=== PATIENT | female | born 1955 | race Caucasian/White ===

== ENCOUNTER 2017-01-18 11:21 | Emergency (ER) | payer MEDICARE, MEDICAID ==
[~2017-01-18] VITALS: Ht 167.6 cm; Wt 90.9 kg
[~2017-01-18 11:21] MED LIST: ATEN100T PO; FURO40TA4 PO; HYDR-4003 PO; INSLIS SUBQ; INSU100V7 SUBQ; METF1000 PO; PARO10OR3 PO; POTA10TA PO
[2017-01-18 11:25] VITALS: BP 182/99; PULSE 92; RESP 15; O2SAT 97
--- NOTE | 2017-01-18 11:31 | ED.REPORT ---
HPI-General Illness Date of Service Jan 18, 2017 ED Provider: Gordon Mcnulty MD Patient is a 61 year old female with a hx of HTN, hyperlipidemia, DM, COPD, hypothyroid, and valvular heart disease who presents to the ED stating that her blood sugar has been high since this morning when she woke up. Associated symptoms include confusion, blurred vision, bilateral hand numbness, SOB, and sweats. She denies fever, headache, chest pain, abdominal pain, or any other symptoms. She denies excessive sugar intake. She ate cereal this morning. Upon waking her blood sugar was 329. She took 10 units of Humalog at 1000 which brought it down to 296. She normally takes 50 of Lantus at night. Nursing Notes Stated Complaint: HIGH BLOOD SUGAR Chief Complaint: General Complaint Nursing Notes Reviewed: Yes Allergies: Coded Allergies: lisinopril (Verified Allergy, Severe, ANAPHYLAXIS, 01/18/17) vancomycin (Verified Allergy, Severe, ITCHING, 12/28/15) simvastatin (Verified Allergy, Unknown, 12/28/15) metformin (Verified Adverse Reaction, Intermediate, DIARRHEA AT TIMES, ) Scheduled Atenolol (Atenolol) 100 Mg Tablet 100 MG PO DAILY Azithromycin (Zithromax (Z-Emmanuel)) 250 Mg Tablet 250 MG PO DIRECTED Take two tablets by mouth on day 1, then take one tablet daily on days 2 through 5. Furosemide (Furosemide) 40 Mg Tablet 40 MG PO DAILY Insulin Glargine (Lantus U100 Insulin Vial) 100 Unit/Ml Vial 50 UNIT SUBQ QPM Insulin Human Lispro (HumaLOG U100 Insulin Vial) 100 Unit/Ml Unit 1 UNIT SUBQ per sliding scale Check blood sugars before meals and at bedtime. Use correction factor only before meals. Blood Sugar Lispro Correction: <151, 0 units; 151-175, 1 unit; 176-200, 2 units; 201-225, 3 units; 226-250, 4 units; 251-275, 5 units; 276-300 , 6 units; 301-325, 7 units; 326-350, 8 units; 351-375, 9 units; 376-400, 10 units; >400, 12 units. Metformin (Glucophage) 1,000 Mg Tablet 1,000 MG PO BID Paroxetine (Paxil) 10 Mg/5 Ml Oral.susp 20 MG PO HS Potassium Chloride ER (K-Tab) 10 Meq Tablet.er 10 MEQ PO DAILY Scheduled PRN Hydrocodone-Acetaminophen 5-325 mg (Hydrocodone-Acetaminophen 5-325 mg) 1 Each Tablet 1 EACH PO Q4 PRN PRN For Pain General Time Seen by MD: 11:30 Chief Complaint Other (High blood pressure ) Hx Obtained From: Patient Arrived By: Walk-in Sudden in Onset?: Yes Onset Occurred: 1 - 4 hours ago Symptom Duration: Since onset Similar Sx Previous: Yes Past Medical History Past Medical History 1. Diabetes mellitus type 2 diagnosed August 2011. Poorly controlled with hemoglobin A1c of 11.4 in April. Recently discharged on regular insulin, but tells me she has only needed to use this three times for sugars greater than 200. 2. Recurrent left periorbital cellulitis. Originally diagnosed in August 2011. Treated at [facility] with IV clindamycin. Recurrent episode in March and then again in April. Finished oral Bactrim therapy about a week and a half ago. 3. Reports recurrent ear infections and sinus infections. Previously saw a Dr. Evans of ENT for mastoidectomy greater than 10 years ago. 4. Difficult to manage hypertension requiring several oral agents. 5. hyperlipidemia 6. hypothyroid 7. valvular heart disease Reports: COPD Past Surgical History Right hip replacement mostoid septo Reports: , Hysterectomy Family History noncontributory Smoking History Current Every Day Smoker, Light Tobacco Smoker Ambulatory Status Independent Review of Systems +high blood sugar Full Review of Systems Constitutional: Denies: Fever Eyes: Reports: Blurred bilateral Respiratory: Reports: Shortness of breath Cardiovascular: Denies: Chest pain GI: Denies: Abdominal pain Skin: Reports Diaphoresis Neurologic: Reports: Numbness, Denies: Headache Psychiatric: Reports: Confusion Complete sys rev & neg: except as marked. Physical Exam Vital Signs Vital Signs Date Time Temp Pulse Resp B/P Pulse Ox O2 Delivery O2 Flow Rate FiO2 01/18/17 14:21 70 16 139/81 92 Room Air 01/18/17 11:25 36.5 92 15 182/99 97 Room Air Initial VS: Reviewed, Vital signs abnormal Head / Eyes: Atraumatic, Normocephalic Neck: Full range of motion Skin: Warm, Dry Psychiatric: Mood/affect normal, Behavior normal, Normal thought content General/Constitutional: Awake, Alert, No acute distress Respiratory / Chest: Atraumatic, Breath sounds NL, Breath sounds = bilat, No respiratory distress Cardiovascular: Heart rate NL, Regular rhythm, Heart sounds NL, No gallop, No murmurs, No rubs Abdomen: Atraumatic, Soft, Non-tender Neurologic: Oriented X3, Speech NL, CN II - XII intact Interpretation & Diagnostics Lab Results Interpretation Result Diagram: 01/18/17 1222 01/18/17 1222 Test 01/18/17 12:22 White Blood Count 9.7th/mm3 (3.8-10.1) Red Blood Count 5.04mil/mm3 (3.90-5.20) Hemoglobin 15.1g/dL (12.0-15.6) Hematocrit 46.4% (35.0-46.0) Mean Corpuscular Volume 92.1fL (81-100) Mean Corpuscular Hemoglobin 30.0pg (27.0-35.0) Mean Corpuscular Hemoglobin Concent 32.5% (32.0-37.0) Red Cell Distribution Width 12.8% (12.3-15.4) Platelet Count 235bil/L (150-400) Neutrophils (%) (Auto) 62.9% (40-74) Lymphocytes (%) (Auto) 27.0% (14-46) Monocytes (%) (Auto) 7.3% (4-12) Eosinophils (%) (Auto) 2.1% (0-5) Basophils (%) (Auto) 0.5% (0-3) Sodium Level 142mEq/L (134-144) Potassium Level 4.0mEq/L (3.5-5.2) Chloride Level 98mEq/L (97-108) Carbon Dioxide Level 26mmol/L (18-29) Blood Urea Nitrogen 22mg/dL (6-24) Creatinine 1.15mg/dL (0.57-1.00) Estimat Glomerular Filtration Rate 69mL/min (>59) Glucose Level 179mg/dL (60-99) Calcium Level 9.9mg/dL (8.5-10.1) Total Bilirubin 0.2mg/dL (0.0-1.2) Aspartate Amino Transf (AST/SGOT) 23U/L (0-50) Alanine Aminotransferase (ALT/SGPT) 9U/L (0-32) Alkaline Phosphatase 98U/L (25-165) Total Protein 7.6g/dL (6.4-8.4) Albumin 4.2g/dL (3.4-5.0) X-Ray Chest Interpretation Chest Xray Interpretation: IMPRESSION: Vague increased right infrahilar density may represent overlying soft tissue structures of the chest. However, this may also represent developing pneumonia and clinical correlation is recommended. Dictated by: Leo Arevalo M.D. on 01/18/2017 at 11:45 Approved by: Leo Arevalo M.D. on 01/18/2017 at 11:46 View: Portable, 1 view Interpretation / Wet Read by: Interpret - Radiologist Re-Eval/Medical Decision Med Decision/Clinical Course 61-year-old female history of insulin-dependent diabetes presenting complaining of hyperglycemia and diaphoresis. She reports a mild cough. She is a smoker. Her blood sugar was in the 200s. Repeat was 160s. X-ray with possible atypical pneumonia. Labs are unremarkable. Patient will be treated with azithromycin for possible community acquired pneumonia. Follow up with her primary doctor in next 2-3 days for recheck return precautions given if any new or worsening shortness of breath, fevers, nausea vomiting, any other new or worsening symptoms Time of Eval: 13:39 Re-Evaluation/Progress Note: Discussed plan for discharge. Patient understands and agrees with plan. All questions addressed at this time. Counseled Regarding: Diagnosis, Lab results, Need for follow-up, When/why to return to ED Discharge & Departure Primary Impression: Community acquired pneumonia Disposition: Home Discharge Condition All VS Reviewed: Yes Condition: Stable Patient Instructions: Community Acquired Pneumonia (ED) Additional Instructions: Thank you for entrusting us with your care. Your X-ray indicates that you have a pneumonia. Take the antibiotics as prescribed until they are finished. Follow up with your primary doctor in the next week. Return to the emergency department if you develop rash, vomiting, shortness of breath, high fever, chest pain, or any other symptoms. Referrals: Margarita Vazquez DO (PCP) Scribe Attestation Portions of this note were transcribed by Nidhi Woodruff. I, Dr. Mcnulty personally performed the history, physical exam and medical decision-making; I reviewed and confirmed the accuracy of the information in the transcribed note. Signed by: Jorge Short, 01/18/17 at 1339 copies to: Margarita Vazquez Ben M MD Jan 18, 2017 11:30 NIDHI WOODRUFF Jan 18, 2017 11:40
[2017-01-18] MEDS ORDERED: Ondansetron 2 mg/mL 2 mL Inj IVPUSH PRN (12:20)
[2017-01-18 12:32] LABS: Mean Corpuscular Volume 92.1 fL (81-100)
[2017-01-18 12:33] LABS: BASOPHILS % (AUTO) 0.5 % (0-3); EOSINOPHILS % (AUTO) 2.1 % (0-5); MONOCYTES % (AUTO) 7.3 % (4-12); NEUTROPHILS % (AUTO) 62.9 % (40-74); Platelet Count 235 bil/L (150-400)
--- NOTE | 2017-01-18 12:50 | DRSVH ---
PROCEDURE: X-RAY CHEST ONE VIEW, PORTABLE ([id number]) INDICATIONS: dyspnea TECHNIQUE: One view of the chest was acquired. COMPARISON: [facility], CR, XR CHEST 2VW, 07/20/2015, 7:59. FINDINGS: Surgical changes and devices: None. Lungs and pleura: Vague increased attenuation within the right infrahilar region appears to be presen t. There is no lobar consolidation, large effusion, or pneumothorax. Mediastinum: Mediastinal contours appear normal. Heart size is normal. Bones and chest wall: No suspicious bony lesions. Overlying soft tissues appear unremarkable. IMPRESSION: Vague increased right infrahilar density may represent overlying soft tissue structures o f the chest. However, this may also represent developing pneumonia and clinical correlation is recom mended. Dictated by: Leo Arevalo M.D. on 01/18/2017 at 11:45 Approved by: Leo Arevalo M.D. on 01/18/2017 at 11:46
[2017-01-18] MEDS ORDERED: 0.9% Sodium Chloride 1,000 ML IV ONE (13:20)
[2017-01-18] MEDS ORDERED: AZIT250T4 PO (13:30)
[2017-01-18 14:21] VITALS: BP 139/81; PULSE 70; RESP 16; O2SAT 92
== END 2017-01-18 14:22 | disposition home or self-care (01) ==
LOC: SED 11:21
DX: J18.9 Pneumonia, unspecified organism (principal); R41.0 Disorientation, unspecified; H53.8 Other visual disturbances; R20.0 Anesthesia of skin; R06.02 Shortness of breath; R61 Generalized hyperhidrosis; I10 Essential (primary) hypertension; J44.9 Chronic obstructive pulmonary disease, unspecified; E03.9 Hypothyroidism, unspecified; E78.5 Hyperlipidemia, unspecified; E11.65 Type 2 diabetes mellitus with hyperglycemia; F17.200 Nicotine dependence, unspecified, uncomplicated; Z96.641 Presence of right artificial hip joint; Z79.4 Long term (current) use of insulin; Z79.84 Long term (current) use of oral hypoglycemic drugs; Z88.1 Allergy status to other antibiotic agents; Z88.8 Allergy status to other drugs, medicaments and biological substances
CPT/HCPCS: 36415; 71010; 80053; 82948; 85025; 96360; 99284; J7030